=== PATIENT | male | born 1995 | race African-American/Black ===

== ENCOUNTER 2020-12-12 14:26 | Emergency (ER) | payer SELFPAY ==
[2020-12-12 14:33] VITALS: BP 118/64; PULSE 88; RESP 20; TEMP 36.8; O2SAT 100
--- NOTE | 2020-12-12 15:00 | ED.GENADULT ---
HPI - General Adult General Chief complaint: Urogenital-Male Stated complaint: std testing Source: patient Mode of arrival: ambulatory Limitations: no limitations History of Present Illness HPI narrative: Patient presents for evaluation of STD exposure. He indicates that he has been sexually active with a female partner since the middle to end of November. She recently informed him that at the end of October she tested positive for chlamydia, for which she was treated appropriately per his reports. He denies any fever, chills, nausea, vomiting, dysuria, urethral discharge, testicular pain, or other urinary symptoms. No history of STI. Last STI testing was conducted approximately a year and a half ago. He indicates he does not use condoms during sexual encounters. Related Data Home Medications Medication Instructions Recorded Confirmed No Home Medications 12/12/20 12/12/20 Allergies Allergy/AdvReac Type Severity Reaction Status Date / Time No Known Allergies Allergy Verified 12/12/20 14:39 Review of Systems Review of Systems: Narrative: CONSTITUTIONAL: Denies fever, chills, or sweats. EYES: Denies visual changes, redness, or discharge. ENT: Denies rhinorrhea, congestion, sore throat, or otalgia. CARDIOVASCULAR: Denies chest pain, palpitations, or edema. RESPIRATORY: Denies cough or dyspnea. GASTROINTESTINAL: Denies abdominal pain, nausea, vomiting, or diarrhea. GENITOURINARY: Denies dysuria or hematuria. SKIN: Denies rash or itching. MUSCULOSKELETAL: Denies back pain, joint pain, or myalgia. NEUROLOGIC: Denies headache, numbness, dizziness, or weakness. PSYCHIATRIC: Denies anxiety or depression. [facility] Past Medical History Medical History (Updated 12/12/20 @ 15:07 by NISREEN Caruso, ) Asthma Volvulus Surgical History Surgical History History of bowel resection Family History Family History Mother No pertinent past medical history Social History Social History Smokeless tobacco user: other Additional smoking assessment comments: uses black and milds from time to time Alcohol intake: current Alcohol use details: socially Substance use: current Substance use type: marijuana Living arrangements: with family Gender identity (if verbalized by the patient): Male Sexual Orientation (if Verbalized by the Patient): Straight or Heterosexual Spiritual care concerns: No Exam Narrative: Exam Narrative: GENERAL: Well-appearing, well-nourished, and in no acute distress. HEAD: Normocephalic, atraumatic. EYES: PERRLA and EOMI. ENT: Nares clear, no rhinorrhea or epistaxis. Mucous membranes moist. Oropharynx without tonsillar hypertrophy exudate or other lesions. Bilateral TMs pearly donaldson nonbulging NECK: Supple. No adenopathy or masses. No carotid bruits or JVD CHEST: Clear to auscultation. No respiratory distress. No wheezes rales or rhonchi HEART: Regular rate and rhythm. No murmur heard. Normal peripheral pulses. ABDOMEN: Soft, nontender, nondistended, normal active bowel sounds. EXTREMITIES: Normal range of motion. No edema. SKIN: Warm, dry, no rash. GENITAL: No external genital lesions. No inguinal lymphadenopathy. No urethral discharge. No testicular masses or tenderness. No scrotal swelling NEURO: No focal deficits. Alert and oriented x3. PSYCH: Normal mood and affect. Course Course Emergency Course: This is a 25-year-old male that presents requesting STI testing after female sex partner informed him that she was treated for chlamydia at the end of October. Patient and partner initiated sexual contact in mid to late November. Patient is asymptomatic. He elected to be treated empirically for gonorrhea, chlamydia, trichomonas. Advised comprehensive STI testing. Advised safer sex practi
[2020-12-12] MEDS: AZITHROMYCIN 250 MG TABLET 1000 MG PO (15:22)
[2020-12-12] MEDS: cefTRIAXone 250 MG VIAL 500 MG IM (15:23)
== END 2020-12-12 15:45 | disposition home or self-care (01) ==
PROVIDERS: Emergency Provider Nurse Practitioner
DX: Z20.2 Contact with and (suspected) exposure to infections with a predominantly sexual mode of transmission (principal); J45.909 Unspecified asthma, uncomplicated
CPT/HCPCS: 81003; 87086; 87491; 87591; 87661; 96372; 99213; A9270; G0463; J0696